=== PATIENT | male | born 1990 | race African-American/Black ===

== ENCOUNTER 2024-01-25 12:48 | Emergency (ER) | payer OTHER ==
[~2024-01-25] VITALS: Ht 172.7 cm; Wt 90.0 kg
[2024-01-25 12:57] VITALS: BP 140/98; RESP 20; TEMP 98.4; O2SAT 98
[2024-01-25 12:59] VITALS: PULSE 91
[2024-01-25] MEDS ORDERED: IBUP-2030 MT (14:34)
[2024-01-25] MEDS ORDERED: DOCU250C14 MT (14:35)
== END 2024-01-25 15:03 | disposition home or self-care (01) ==
LOC: ER 12:48
DX: M54.50 Low back pain, unspecified (principal); K59.00 Constipation, unspecified
CPT/HCPCS: 99282